=== PATIENT | male | born 1955 | race Caucasian/White ===

== ENCOUNTER 2018-01-10 07:35 | Day surgery (SDC) | payer OTHER ==
[~2018-01-10 07:35] MED LIST: GENTAMICIN IV ONE; NA CHLORIDE 0.9% 0 ML ONE
--- OUTSIDE RECORDS SUMMARY | 2018-01-10 07:38 | XMS REPORT ---
:1955 Author Organization [employer] Care Team Providers Name Role Phone Jerry Ofe Provider Role Unavailable Allergies, Adverse Reactions, Alerts Substance Reaction Event Type N.K.D.A. Info Not Available Non Drug Allergy Problems Problem Type Condition Code Onset Dates Condition Status Problem Acquired hypothyroidism E03.9 Active Problem Vitamin D deficiency E55.9 Active Assessment Mass R22.9 Active Assessment Encounter for general adult medical Z00.00 Active examination without abnormal findings Medications Medication Code System Code Instructions Start End Date Status Dosage Date Synthroid [facility] [id number] 175 MCG Orally Active 1 tablet on Once a day an empty stomach in the morning Vitamin D [facility] [id number] 2000 UNIT Orally Active 1 tablet Once a day PredniSONE [facility] [id number] 20 MG Orally BID Active 1 tablet Results No Known Results Summary Purpose eClinicalWorks Submission
[2018-01-10] MEDS ORDERED: CEFAZOLIN/SWI 1gm 1 GM/10 ML SYR ONE (08:02)
[2018-01-10] MEDS ORDERED: BUPIVACA 0.25%/EPI 0.0005% MDV 50 ML VIAL ONE (08:07)
[2018-01-10] MEDS ORDERED: LIDOCAINE 2% MPF 5 ML VIAL ONE (08:13)
[2018-01-10] MEDS ORDERED: MIDAZOLAM HCL 2 MG/2 ML INJ ONE (08:13)
[2018-01-10] MEDS ORDERED: PROPOFOL 200 MG/20 ML VIAL IV ONE (08:13)
[2018-01-10] MEDS ORDERED: ROCURONIUM 50 MG/5 ML VIAL IV ONE (08:14)
[2018-01-10] MEDS: Ringers Lactate 1,000 ML IV ONE (08:14)
[2018-01-10] MEDS ORDERED: FENTANYL CITR 250 MCG/5 ML ONE (08:16)
[2018-01-10] MEDS ORDERED: GLYCOPYRROLATE 0.2 MG/ML SYR ONE (09:01)
[2018-01-10] MEDS ORDERED: Ringers Lactate 1,000 ML IV ONE (09:39)
--- NOTE | 2018-01-10 10:10 | P.OP ---
Manager Financial Reporting: PETER PATTON Preoperative diagnosis: Right inguinal hernia Postoperative diagnosis: Right inguinal hernia Primary procedure: Open Right inguinal hernia repair with plug and patch Anesthesia: GETA + Local Estimated blood loss: <10cc Specimen: Cord Lipoma Findings: Medium sized inguinal hernia Complications: None Implants: Bard Perfix Polypropylene Medium Plug and Patch Transferred to: Recovery Room Condition: Good
[2018-01-10] MEDS ORDERED: KETOROLAC 30 MG/ML INJ ONE (10:11)
[2018-01-10] MEDS: MEPERIDINE HCL 50 MG/ML AMP ONE ×2 (10:32→10:37)
[2018-01-10] MEDS ORDERED: ONDANSETRON 4 MG/2 ML VIAL ONE (10:36)
[2018-01-10] MEDS ORDERED: HYDROCODONE/APAP 5/325 MG TAB ONE (11:45)
--- NOTE | 2018-01-10 12:04 | OP ---
Date of Procedure: 01/10/2018 Surgeon: Rosales Suarez MD, [place]: Kenzie Valles. Preoperative Diagnosis: Right inguinal hernia. Postoperative Diagnosis: Right inguinal hernia. Procedure Performed: Open right inguinal hernia repair with plug and patch system. Anesthesia: General endotracheal plus local with 0.25% Marcaine with epinephrine. Estimated Blood Loss: Less than 2 cc. Specimen: Cord lipoma. Findings: Medium-sized inguinal hernia. Complications: None. Implant: Bard PerFix polypropylene medium plug and patch system. Disposition: Transferred to recovery room in good condition. Procedure In Detail: After informed consent was obtained, the patient was brought to the operating r oom, prepped and draped in the usual sterile fashion. After adequate anesthesia was achieved, a righ t inguinal incision was made. Dissection continued down through [place] fat and Moni fascia to expo se the external oblique aponeurosis. This was found to be quite thin and friable. After exposing th e external oblique aponeurosis, I approached the spermatic cord structures, encircled with a [place] drain and after careful dissection, dissected back the preperitoneal fat and cord lipoma from the cor d lipoma structures. I then removed the cord lipoma and sent off for pathologic examination. I then felt the hernia defect found to be in the medial aspect of the cord. I palpated digitized this area and swept it until completely clear. I sized the Bard PerFix polypropylene medium plug and patch sy stem and trimmed it appropriately. I placed 4 stay sutures of 2-0 PDS suture in a circumferential fa shion around the deep inguinal ring region in the area of the hernia defect and placed this patch int o that defect and secured it with the above-stated stitches ensuring that the closure was not too tig ht. The testicle was distracted and found to have good blood supply without any compression of vesse ls. I did note that the patient had what appeared to be a varicocele emanating on the testicular halie e of the spermatic cord. After dissection of the structures was completed under the spermatic cord s tructures, the medium patch system was then brought in and secured to the pubic tubercle on the media l aspect and circumferentially around the shelving edges on both the medial and lateral edges to quinn nstitute the inguinal ring. After this was completed, the area was copiously irrigated. Good hemost asis was achieved without any additional hemostatic maneuvers, and the remnant of the external obliqu e aponeurosis was closed over the top with a running 3-0 Vicryl suture. Additional, the [place] fat a nd Moni fascia were closed en bloc with 3-0 running Vicryl suture with good approximation tissue. The area was copiously irrigated one last time and the dermal layer was closed with interrupted 3-0 V icryl. The skin was then closed with a 4-0 Monocryl in a running fashion. Dermabond placed over the top. The patient tolerated the procedure well without evidence of complication and transferred back in good condition. All counts were correct at the end of the case. SEDRICK/ADRIAN Voice ID: [id number] Report ID: [id number]
== END 2018-01-10 14:25 | disposition home or self-care (01) ==
LOC: OR 07:35
PROVIDERS: ATTEND Surgery
PROC: 0YU50JZ Supplement Right Inguinal Region with Synthetic Substitute, Open Approach (ICD-10-PCS; principal; 2018-01-10 08:30)
DX: K40.90 Unilateral inguinal hernia, without obstruction or gangrene, not specified as recurrent (principal); E03.9 Hypothyroidism, unspecified; E55.9 Vitamin D deficiency, unspecified; Z80.41 Family history of malignant neoplasm of ovary; Z82.49 Family history of ischemic heart disease and other diseases of the circulatory system
CPT/HCPCS: 88302; 88304; G0378; J0690; J1580; J2175; J2250; J2405; J2704; J3010; J7030

== ENCOUNTER 2023-10-19 10:53 | Day surgery (SDC) | payer OTHER ==
[2023-10-17 15:05] LABS: Absolute Eosinophils 0.1 K/uL (0-0.5); Absolute Lymphocytes (CBC) 1.3 K/uL (0.7-4.9); Absolute Monocytes 0.5 K/uL (0.1-1.3); Absolute Neutrophil 3.7 K/uL (1.8-8.0); Basophils % 0.5 % (0-1.3); Eosinophils % 1.6 % (0-4.4); Lymphocytes % 23.6 % (15.3-44.8); MCH 29.7 pg (27.0-35.0); MCHC 33.4 g/dL (32.0-36.0); MCV 88.9 fL (80-100); MPV 7.7 fL (7.6-11.3); Monocytes % 8.6 % (3.3-12.3); Neutrophils % 65.7 % (41.7-73.7); Nucleated Red Blood Cells % 0.2 % (0-0); Platelets 231 thou/uL (152-406); RBC Red Blood Cell Count 4.73 M/uL (4.33-5.43); Red Cell Distribution Width 14.6 % (12.1-15.2)
[2023-10-19] MEDS: Ringers Lactate 1,000 ML IV ONE (11:20)
--- NOTE | 2023-10-19 13:34 | EKG ---
Test Date: 2023-10-17 Test Time: 14:30:43 Over Short And Damage Clerk: ЕЛЕНА MEASUREMENT RESULTS: Intervals: Rate: 63 MS: 130 QRSD: 96 QT: 382 QTc: 390 [place]: P: 72 MS: 130 QRS: 29 T: 59 INTERPRETIVE STATEMENTS: Sinus rhythm with occasional premature ventricular complexes Otherwise normal ECG Compared to ECG 03/13/1998 22:18:00 Ventricular premature complex(es) now present T-wave abnormality no longer present Electronically Signed On 10-19-23 13:29:10 CDT by Mauro Freeman
[2023-10-19] MEDS ORDERED: LIDOCAINE 1% MPF 5 ML VIAL ONE (14:38)
[2023-10-19] MEDS ORDERED: propofoL 200 MG/20 ML VIAL IV ONE ×3 (14:38)
[2023-10-19 16:51] VITALS: BP 109/81; TEMP 98.2; O2SAT 100
== END 2023-10-19 16:45 | disposition home or self-care (01) ==
LOC: OR 10:53
PROVIDERS: ATTEND Surgery
PROC: 0DB38ZX Excision of Lower Esophagus, Via Natural or Artificial Opening Endoscopic, Diagnostic (ICD-10-PCS; 2023-10-19)
PROC: 0DB58ZX Excision of Esophagus, Via Natural or Artificial Opening Endoscopic, Diagnostic (ICD-10-PCS; 2023-10-19)
PROC: 0DBN8ZX Excision of Sigmoid Colon, Via Natural or Artificial Opening Endoscopic, Diagnostic (ICD-10-PCS; principal; 2023-10-19 14:30)
PROC: 0DB48ZX Excision of Esophagogastric Junction, Via Natural or Artificial Opening Endoscopic, Diagnostic (ICD-10-PCS; 2023-10-19 14:30)
DX: Z12.11 Encounter for screening for malignant neoplasm of colon (principal); K21.9 Gastro-esophageal reflux disease without esophagitis; N42.9 Disorder of prostate, unspecified; K52.9 Noninfective gastroenteritis and colitis, unspecified; K64.8 Other hemorrhoids; R10.13 Epigastric pain; K44.9 Diaphragmatic hernia without obstruction or gangrene; I85.00 Esophageal varices without bleeding; K29.50 Unspecified chronic gastritis without bleeding
CPT/HCPCS: 45380; 43239; 93005; 85025; 80048; 36415; 88312; 88305; J2704 ×2; J2001; J7120